=== PATIENT | male | born 1970 | race Caucasian/White ===

== ENCOUNTER 2018-04-17 14:03 | Emergency (ER) | payer SELFPAY ==
[~2018-04-17] VITALS: Ht 160 cm; Wt 72.7 kg
[2018-04-17] MEDS ORDERED: METF-960 PO (14:12)
[2018-04-17 14:19] LABS: GLUCOSE,POINT OF CARE 176 MG/DL (70-110)
[2018-04-17] MEDS ORDERED: PERTUSS(ACELL),DIPH,TET VAC/PF 0.5 ML VIAL IM ONE (15:30)
[2018-04-17] MEDS ORDERED: LIDOCAINE 1% 10 ML VIAL INJ ONE (15:30)
[2018-04-17 16:03] VITALS: BP 137/89
== END 2018-04-17 16:36 | disposition home or self-care (01) ==
LOC: EMS 14:05
DX: S01.01XA Laceration without foreign body of scalp, initial encounter (principal); E11.9 Type 2 diabetes mellitus without complications; Z23 Encounter for immunization; Z79.84 Long term (current) use of oral hypoglycemic drugs; W20.8XXA Other cause of strike by thrown, projected or falling object, initial encounter; Y93.89 Activity, other specified; Y92.89 Other specified places as the place of occurrence of the external cause; Y99.8 Other external cause status
CPT/HCPCS: 12002; 82962; 90471; 90715; 99283; J3490

== ENCOUNTER 2018-04-25 14:32 | Emergency (ER) | payer SELFPAY ==
[~2018-04-25] VITALS: Ht 177.8 cm; Wt 113.6 kg
[~2018-04-25 14:32] MED LIST: METF-960 PO
[2018-04-25 15:00] LABS: GLUCOSE,POINT OF CARE 142 MG/DL (70-110)
[2018-04-25 15:28] VITALS: BP 127/83
== END 2018-04-25 15:29 | disposition home or self-care (01) ==
LOC: EMS 14:33
DX: S01.01XD Laceration without foreign body of scalp, subsequent encounter (principal); R03.0 Elevated blood-pressure reading, without diagnosis of hypertension; E11.9 Type 2 diabetes mellitus without complications; Z79.84 Long term (current) use of oral hypoglycemic drugs; W20.8XXD Other cause of strike by thrown, projected or falling object, subsequent encounter